=== PATIENT | female | born 1965 | race Caucasian/White ===

== ENCOUNTER 2025-02-16 08:45 | Outpatient (CLI) | payer OTHER, SELFPAY ==
--- OUTSIDE RECORDS SUMMARY | 2024-09-08 05:53 | XMS_ITS | Continuity of Care Document ---
[facility] Organization [facility] Address [address] [place] [address] Phone Care Team Providers Care Inventory Administrator Name Role Phone Farzad Rebolledo MD Unavailable Unavailable Allergies, Adverse Reactions, Alerts Substance Reaction Status Criticality No Known Allergies Active No Inform ation Medications Medication Instructions Dosage Effective Dates (start - stop) Status Comments Suprep Bowel Prep Kit 17.5 gram-3.13 gram-1.6 gram oral solution drink 1st bottle at 5 pm the night before colonoscopy and the 2nd bottle 6 hours prior to colonoscopy - Active Vitamin D2 1,250 mcg (50,000 unit) capsule take 1 capsule by oral route every 4 weeks 63358 UNITS - Active Procedures Procedure Date TISSUE EXAM BY PATHOLOGIST COLONOSCOPY AND BIOPSY OFFICE [id number] BODY MASS INDEX DOCD SYST BP >= 140 MM HG6 IT DIAST BP >= 90 MM HG SCREENING COLONOSCOPY ; HIGH RISK Advance Directives Directive Yes / No Effective Date File Name No Information Encounters Encounter Description Practice Location Reason(s) For Visit Diagnoses Date Provider Providers Copied on Encounter [facility], [address], [place], [place], [id number] , [place] tel: [phone] [facility] No Information 5 Amaury Panda. [address], [place], [id number] , [place]. tel: [phone] [facility], [address], [place], [place], [id number] , [place] tel: [phone] [facility] No Information 5 Akshat Kyle. [address] [place], [address], [place]. tel: [phone] Referring Provider: Maximino Silveira [facility] [address], [place], [address]. tel:[phone] [facility], [address], [place], [place], [address] , [place] tel: [phone] [facility] [place] No Information 5 Amaury Panda. [address] [place] [address] B, [place], [place], [id number] , [place]. tel: [phone] Referring Provider: Maximino Silveira [facility] [address], [place], [address]. tel:[phone] [facility], [address], [place], [place], [id number] , [place] tel: [phone] [facility] No Information 5 Amaury Panda. [address] [place] [address], [id number] , [place]. tel: [phone] [facility] [address], [place], [place], [id number] , [place] tel: [phone] [facility] Crohn's disease (chief complaint) Crohn's disease of ileum with complication 3 Isidro Hopkins. [address] [place] [address], [id number] , [place]. tel: [phone] Referring Provider: Maximino Silveira [facility] [address], [place], [address]. tel:[phone] [facility], [address], [place], [place], [id number] , [place] tel: [phone] [facility] [place] No Information 0 Amaury Panda. [address] [place] [address], [id number] , [place]. tel: [phone] Referring Provider: Nicole robertson [address] [place] [address] [address], [place], [address]. tel:[phone] [facility], [address], [place], [place], [address] , [place] tel: [phone] [facility] Crohn's disease of ileum with complication Mar- 9 9 Amaury Panda. [address] [place] [address], [id number] , [place]. tel: [phone] [facility], [address], [place], [place], [address] , [place] tel: [phone] [facility] Crohn's disease of ileum with complicationConsti pation, unspecified constipation typeGastroesophage al reflux disease, esophagitis presence not specifiedAbdominal pain, unspecified abdominal location 0 8 Isidro Hopkins. [address] [place] [address], [id number] , [place]. tel: [phone] Referring Provider: Sid Davies, [address] [place] [address] [address], [place], [address]. tel:[phone] [facility], [address], [place], [place], [address] , [place] tel: [phone] [facility] Crohn's disease of small intestine with unspecified complications 4 6 Amaury Panda. [address] [place] [address], [id number] , [place]. tel: [phone] [facility], [address], [place], [place], [address] , [place] tel: [phone] [facility] Crohn's disease of small intestine with unspecified complicationsRecta l spasmIndigestion Sep- 8 6 Amaury Panda. [address] [place] [address], [id number] , [place]. tel: [phone] Referring Provider: Farzad Rebolledo, [address] [place] [address], [address] . tel:[phone] [facility], [address], [place], [place], [address] , [place] tel: [phone] [facility] Crohn's ileitisConstipatio n 5 Amaury Panda. [address] [place] [address], [id number] , . tel: [phone] Referring Provider: Farzad Rebolledo, [address] [facility], [place], [address] . tel:[phone] Family History Family Member Type Diagnosis Age At Onset Problem (finding) No family history of Ul cerative colitis Problem (finding) No family history of Ca ncer, colon Problem (finding) No family history of Cr ohn's disease Problem (finding) No family hist ory of Diverticular disease Problem (finding) No family history of Ce liac disease Problem (finding) No family history of Co lorena polyps Problem (finding) No family history of Co litis Problem (finding) No family hist ory of Peptic ulcer disease Problem (finding) No family hist ory of Irritable bowel disease Payers Payer name Insurance type Covered constitution party ID Authoriza tion(s) [facility] [id number] Social History Type Description Quantity Date Captured Comments Alcohol Use Details Unknown Caffeine Use Details Unknown Tobacco Use Status No Information Smoking Status No Information Sex Female Chief Complaint And Reason For Visit No Information Reason For Referral Reason For Referral No Information History Of Present Illness Encounter Date Complaint History Of Prese nt Illness Crohn's disease Comments: 58 yea r old female that presents for Crohn's disease. Pt reports lower abdominal pain. She reports the pain for the past month. Pain started in suprapubic area, as an ache. She was taking ibuprofen and helped some. She gets abdominal soreness from eating. The pain is better. More foods are increasing her symptoms. She has constipation and does not have bowel movements regularly. Massaging the area gives her some relief Denies blood in her stools. She feels like her rectum is full and has pressure, she will be woke up with rectal spasms. Weight stable. Last colonoscopy in 2019. She is not currently taking medication for her Crohn's disease. Had urine test with pcp that was normal per pt. Functional Status Date Functional Assessmen t No Information Instructions Date Instruction Additional Infor nani We are getting you s cheduled for a CT scan- the office will call with the results when they are availableWe are also ordering a stool test to check for inflammation-the office will call with the resultsFurther recommendations to follow after the results are availableFollow up in the office in 6 months, call sooner for problems Related to Crohn's disease of ileum with complication Assessments Type Assessment Date No Information Patient Care Teams Name Effective Dates (start - stop) Status Members No Information
--- OUTSIDE RECORDS SUMMARY | 2025-02-16 08:54 | XMS_ITS | Clinical Summary ---
Author Organization [facility] [[email or web address]] [address] Address [address] [place] [address] Care Team Providers Care Conference Services Coordinator Name Role Phone Talat Machado MD Primary Care Provider Allergies No known active allergies Medications No known medications Active Problems Problem Noted Date Diagnosed Date Chronic pansinusitis 07/16/2022 Deviated nasal septum 07/16/2022 Disorder of breast 11/08/2013 Surgical History Surgery Date Site/Laterality Comments OOPHORECTOMY CHOLECYSTECTOMY SECTION Medical History Medical History Date Comments History of kidney problems Crohn disease (HCC) Family History Medical History Relation Name Comments Diabetes Father Kidney cancer Father Kidney carcino ma - (Added by TW Conv) Relation Name Status Comments Father Social History Tobacco Use Types Packs/Day Years Used Date Smoking Tobacco: Never Smokeless Tobacco: Never Tobacco Cessation:Counseling Given: Not Answered Personal Safety Answer Date Recorded Getting School Help Needed Not on file 08/16 Comments Unknown Sex and Gender Information Value Date Recorded Sex Assigned at Not on file Legal 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 Gender Identity Not on file Sexual Orientation Not on file Obstetrics History Last Filed Vital Signs Vital Sign Reading Time Taken Comments Blood Pressure - - Pulse - - Temperature - - Respiratory Rate 18 07/16/2022 9:24 AM PRESSURE VESSEL INSPECTOR Oxygen Saturation - - Inhaled Oxygen Concentration - - Weight 90.7 kg (200 lb) 07/16/2022 9:24 AM PRESSURE VESSEL INSPECTOR Height 162.6 cm (5' 4) 07/16/2022 9:24 AM PRESSURE VESSEL INSPECTOR Body Mass Index 34.33 07/16/2022 9:24 AM PRESSURE VESSEL INSPECTOR Plan of Treatment Health Maintenance Due Date Last Done Comments Breast Cancer Screening-Mammogram 1965 Cervical Cancer Screening 1965 Colon Cancer Screening-Colonoscopy 1965 Depression Screening 1965 Hepatitis C Screening 1965 DTaP/Tdap/Td Vaccine (1 - Tdap) 01/06/1975 Hepatitis B Screening 01/06/1982 Regular Well Visit/Exam 18-64 01/06/1982 Zoster Vaccine (1 of 2) 01/06/2014 Influenza Vaccine (#1) 2025 Pneumococcal vaccine <65 Aged Out No longer eligible based on patient's age to complete this topic Insurance Care Teams Conference Services Coordinator Relationship Specialty Start Date End Date Talat Machado MD PCP - General Internal Medicine 07/03/22
--- OUTSIDE RECORDS SUMMARY | 2025-02-16 08:55 | XMS_ITS | Clinical Summary ---
Author Organization [facility] Address [facility]ly [facility] [place] [address] Care Team Providers Care Observation Assistant Name Role Phone Anna Howell MD Primary Care Provider [phone] Social History Tobacco Use Types Packs/Day Years Used Date Smoking Tobacco: Never Assessed Comments Unknown Sex and Gender Information Value Date Recorded Sex Assigned at Female 02/14/2025 10:48 AM CDT Legal Sex Female 10:46 AM CDT Gender Identity Not on file Sexual Orientation Not on file Plan of Treatment Upcoming Encounters Date Type Department Care Team (Late st Contact Info) Description 02/21/2025 2:20 PM CDT Appointment [facility] [address] [place] [address] Anna Howell MD [address] [facility] [address] [place] [address] Health Maintenance Due Date Last Done Comments Cervical Cancer Screening Pa p Smear (Age 30 to 64) Every 3 Years 1964 Colorectal Cancer Screening Colonoscopy (10 Years) 1964 Annual Physical 01/06/1967 Hepatitis C 01/06/1982 DTaP, Tdap and Td Vaccines ( 1 - Tdap) 01/06/1983 Cervical Cancer Screening Pa p with HPV Testing (Age 30 to 64) Every 5 Years 01/06/1994 Cervical Cancer Screening with HPV 01/06/1994 Mammogram Screening 2004 Pneumococcal Vaccine: 50+ Ye ars (1 of 1 - PCV) 01/06/2014 Zoster Vaccines (1 of 2) 01/06/2014 COVID-19 Vaccine (2023-2 5 season) 2024 RSV Immunization or 60+ Years (1 - 1-dose 75+ series) 01/06/2039 Meningococcal B Vaccine Aged Out No l onger eligible based on patient's age to complete this topic Meningococcal Vaccine Aged Out No lorena raul eligible based on patient's age to complete this topic RSV Immunizations Under 20 Months Aged Out No longer eligible based on patient's age to complete this topic Insurance [facility] Care Teams Observation Assistant Relationship Specialty Start Date End Date Anna Howell MD [address] [address] PCP - General OBSTETRICS 02/14/25
[2025-02-18 21:07] LABS: Calprotectin, Fecal 36 ug/g (0-120)
== END 2025-02-16 08:46 | disposition home or self-care (01) ==
LOC: ANHLAB 08:47
PROVIDERS: PCP Internal Medicine; Visit Provider Nurse Practitioner Family
DX: K50.10 Crohn's disease of large intestine without complications (principal)
CPT/HCPCS: 83993